=== PATIENT | male | born 1985 | race Caucasian/White ===

== ENCOUNTER 2018-08-14 09:33 | Emergency (ER) | payer SELFPAY ==
[2018-08-14 09:34] VITALS: BP 139/79; PULSE 57; RESP 16; TEMP 35.9; O2SAT 99; BMI 26.6
[2018-08-14] MEDS: Triamcinolone Acetonide 40 MG/ML Vial IU (09:57)
--- NOTE | 2018-08-14 10:01 | ED.DCSUM_ITS ---
- ER Visit Summary Date of Service: 08/14/18 Chief Complaint: Shoulder pain History of Present Illness: The patient is a 33 M with right shoulder pain from overuse. 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 No other trauma. Pain is mild to moderate and achy. Physical Examination: Otherwise unremarkable physical exam he has tenderness over his right shoulder with decreased range of motion passively but not full range of motion actively. He has quite a bit of pain with abduction greater than 90 degrees. Emergency Department Course and Treatment: A posterior shoulder injection was performed. 40 mg of Kenalog and lidocaine were used. Patient tolerated procedure well. I will discharge with NSAIDs. Disposition: Discharge stable condition Impression: Right rotator cuff tendinitis This note was generated with Pinger dictation software. It may contain incorrect words, spelling, and punctuation that were not noted in review of the chart prior to signing ED Disposition - Plan for ED Patient: Disposition: Home or Assisted Living Chief Complaint: Upper Extremity Injury Instructions: ED Tendinitis Rotator Cuff Prescriptions: Naproxen [Naprosyn] 500 mg PO BID PRN #20 tab Referrals: Care Physician,No Primary [Primary Care Provider] - 1 Week
[2018-08-14] MEDS: HYDROcodone Bitartrate/Apap 5/325 Tablet PO (10:07)
== END 2018-08-14 10:09 | disposition home or self-care (01) ==
PROVIDERS: Emergency Provider Emergency Medicine
DX: M75.101 Unspecified rotator cuff tear or rupture of right shoulder, not specified as traumatic (principal); M70.811 Other soft tissue disorders related to use, overuse and pressure, right shoulder; Y93.9 Activity, unspecified; Z72.0 Tobacco use
CPT/HCPCS: 20610; 99283

== ENCOUNTER 2019-04-04 21:22 | Emergency (ER) | payer SELFPAY ==
[2019-04-04 21:22] VITALS: BP 142/80; PULSE 60; RESP 16; TEMP 36.5; O2SAT 97; BMI 27.3
--- NOTE | 2019-04-04 21:37 | ED.VISSUMM ---
- ER Visit Summary Date of Service: 04/04/19 Chief Complaint: Left arm pain History of Present Illness: The patient is a 34 M who presents with left arm pain that has been getting worse over the past couple days. 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 Patient states the pain is sharp and burning. Patient states the pain is worse with movement. Patient denies any paresthesias or weakness. Patient denies any direct trauma or injury. Patient states he has a history of arthritis and his pain feels similar to that. Physical Examination: Vital signs are stable. Patient is afebrile. Patient is in no acute distress. Musculoskeletal exam reveals tenderness over the left forearm and bicep. There is no edema or ecchymosis. There is no deformity noted. Range of motion was limited in all motions of the left wrist, left elbow, and left shoulder secondary to pain. There is no laxity appreciated. Radial pulses are equal bilaterally. Sensation was intact to light touch in the radial, median, and ulnar areas. Strength is 5/5 in the radial, median, and ulnar areas. Capillary refill was less than 2 seconds in all digits. Compartments are soft. Emergency Department Course and Treatment: Patient was advised that this is most likely muscular pain. Patient was given a prescription for Naprosyn. Patient was instructed to use ice to the area. Patient was instructed to follow-up with his primary care physician in 5 to 7 days for further evaluation. Patient understood and was agreeable with the plan. All questions were answered. Disposition: Discharge home Impression: Left forearm strain This note was generated with Spockly dictation software. It may contain incorrect words, spelling, and punctuation that were not noted in review of the chart prior to signing ED Disposition - Plan for ED Patient: Disposition: Home or Assisted Living Diagnosis: Strain of left forearm Instructions: MUSCLE STRAIN, Extremity Prescriptions: Naproxen [Naprosyn] 500 mg PO BID PRN #20 tab Prescription Printed Referrals: Care Physician,No Primary [Primary Care Provider] - Additional Instructions: Use ice to the area. Follow-up with your primary care physician in 5 to 7 days.
[2019-04-04 21:46] VITALS: BP 138/78; PULSE 78; RESP 16; O2SAT 97
== END 2019-04-04 21:59 | disposition home or self-care (01) ==
LOC: ED 21:52
PROVIDERS: Emergency Provider Emergency Medicine
DX: S56.912A Strain of unspecified muscles, fascia and tendons at forearm level, left arm, initial encounter (principal); M19.90 Unspecified osteoarthritis, unspecified site; Z72.0 Tobacco use; X50.3XXA Overexertion from repetitive movements, initial encounter; Y93.89 Activity, other specified; Y92.89 Other specified places as the place of occurrence of the external cause; Y99.8 Other external cause status
CPT/HCPCS: 99282